=== PATIENT | female | born 1990 | race African-American/Black ===

== ENCOUNTER 2018-02-21 19:02 | Emergency (ER) | payer SELFPAY ==
[2018-02-21 19:34] VITALS: BP 133/76
--- NOTE | 2018-02-21 20:02 | ER Document Report ---
ED Medical Screen (RME) - General Chief Complaint: Headache >24 hrs old Stated Complaint: HEADACHE Time Seen by Provider: 02/21/18 19:47 Notes: RAPID MEDICAL EVALUATION DISCLOSURE I have seen this patient as part of a Rapid Medical Evaluation and, if applicable, placed any initially appropriate orders. The patient will be seen and fully evaluated, including a full history and physical exam, by a provider ( in Main ED or Fast Track) when a room becomes available. 28-year-old female here with complaints of headache that started 4 days ago progressively worsening. Headache is waxing and waning in nature. She has been using [id number] Tylenol Excedrin for the symptoms. Today, approximately 12 hours ago, she started to have some right upper extremity numbness tingling and weakness. The upper extremity symptoms are worse when the headache is worse but improved when the headache is minimal. She has no prior history of migraines or other headache syndrome. Denies any family history of same. She has no prior history of multiple sclerosis or family history of same. Denies any prior history of stroke aneurysm Sanchez's syndrome. No vision change fevers chills vomiting but has some nausea. EXAM Rightward tongue deviation RUE strength 4/5 with sensory deficit TRAVEL OUTSIDE OF THE [place] IN LAST 30 DAYS: No - Related Data Allergies/Adverse Reactions: No Known Allergies Allergy (Verified 05/26/16 14:37) Past Medical History - Social History Frequency of alcohol use: Occasional Drug Abuse: None Family history: CAD, CVA, DM, Hypertension, Malignancy Renal/ Medical History: Denies: Hx Peritoneal Dialysis GI Medical History: Reports: Hx Gastritis, Hx Gastroesophageal Reflux Disease, Hx Ulcer Musculoskeltal Medical History: Reports Hx Musculoskeletal Trauma - sprained ankle and dislocated shoulder Psychiatric Medical History: Reports: Hx Anxiety, Hx Bipolar Disorder, Hx Depression Past Surgical History: Reports: Hx Cholecystectomy, Hx Oral Surgery, Hx Tonsillectomy - Immunizations Immunizations up to date: Yes Hx Diphtheria, Pertussis, Tetanus Vaccination: No Physical Exam - Vital signs Vitals: Temp Pulse Resp BP Pulse Ox 98.0 F 78 16 133/76 H 99 02/21/18 19:34 02/21/18 19:34 02/21/18 19:34 02/21/18 19:34 02/21/18 19:34 Course - Vital Signs Vital signs: Temp Pulse Resp BP Pulse Ox 98.0 F 78 16 133/76 H 99 02/21/18 19:34 02/21/18 19:34 02/21/18 19:34 02/21/18 19:34 02/21/18 19:34
--- NOTE | 2018-02-21 21:01 | ER Document Report ---
ED Headache - General Mode of Arrival: Ambulatory Information source: Patient TRAVEL OUTSIDE OF THE [place] IN LAST 30 DAYS: No <FRENCH NEUMANN - Last Filed: 02/21/18 20:52> <ALDO NICHOLSON - Last Filed: 02/21/18 22:31> - General Chief Complaint: Headache >24 hrs old Stated Complaint: HEADACHE Time Seen by Provider: 02/21/18 19:47 Notes: 28 y.o female with a PMHx of bipolar disorder, depression, anxiety, gastritis, GERD and ulcers presents to the ED with a headache of onset , 02/17/18. Pt reports that her pain is to her forehead and RT base of her head radiating to her RUE. She c/o numbness and tingling to her RUE. Pt reports taking her home medications as prescribed. She denies any Hx of migraines. Pt's last menstrual period was February 12. (FRENCH NEUMANN) - Related Data Allergies/Adverse Reactions: No Known Allergies Allergy (Verified 05/26/16 14:37) Past Medical History - General Information source: Patient - Social History Smoking Status: Current Some Day Smoker Chew tobacco use (# tins/day): No Smoking Education Provided: Yes Frequency of alcohol use: Occasional Drug Abuse: None Family History: Arthritis, CVA, DM, Hypertension, Malignancy. denies: CAD, COPD , Hyperlipidemia, Thyroid Disfunction Patient has suicidal ideation: No Patient has homicidal ideation: No Renal/ Medical History: Denies: Hx Peritoneal Dialysis GI Medical History: Reports: Hx Gastritis, Hx Gastroesophageal Reflux Disease, Hx Ulcer Musculoskeltal Medical History: Reports Hx Musculoskeletal Trauma - sprained ankle and dislocated shoulder Psychiatric Medical History: Reports: Hx Anxiety, Hx Bipolar Disorder, Hx Depression Past Surgical History: Reports: Hx Cholecystectomy, Hx Oral Surgery, Hx Tonsillectomy - Immunizations Immunizations up to date: Yes Hx Diphtheria, Pertussis, Tetanus Vaccination: No <FRENCH NEUMANN - Last Filed: 02/21/18 20:52> Review of Systems - Review of Systems Constitutional: No symptoms reported EENT: No symptoms reported Cardiovascular: No symptoms reported Respiratory: No symptoms reported Gastrointestinal: No symptoms reported Genitourinary: No symptoms reported Female Genitourinary: See HPI, Last menstrual period - February 12 2018 Musculoskeletal: No symptoms reported Skin: No symptoms reported Hematologic/Lymphatic: No symptoms reported Neurological/Psychological: See HPI, Headaches, Numbness - RUE, Tingling - RUE -: Yes All other systems reviewed and negative <FRENCH NEUMANN - Last Filed: 02/21/18 20:52> Physical Exam <FRENCH NEUMANN - Last Filed: 02/21/18 20:52> <ALDO NICHOLSON - Last Filed: 02/21/18 22:31> - Vital signs Vitals: Temp Pulse Resp BP Pulse Ox 98.0 F 78 16 133/76 H 99 02/21/18 19:34 02/21/18 19:34 02/21/18 19:34 02/21/18 19:34 02/21/18 19:34 - Notes Notes: Physical Exam: General: Alert, appears well. HEENT: Normocephalic. Atraumatic. PERRL. Extraocular movements intact. Temporal and forehead muscle tenderness to palpation. Neck: Supple. RT posterior cervical tenderness to palpation. Respiratory: No respiratory distress. Clear and equal breath sounds bilaterally. Cardiovascular: Regular rate and rhythm. Abdominal: Normal Inspection. Soft, non-tender. No distension. Normal Bowel Sounds. Back: Non-tender. No deformity or step off. Extremities: Moves all four extremities. Upper extremities: Normal ROM. RT trapezius muscle tenderness. Lower extremities: Normal inspection. No edema. Normal ROM. Neurological: Normal cognition. AAOx3. Normal speech. No weakness to facial muscles or extremities. Psychological: Normal affect. Normal Mood. Skin: Warm. Dry. Normal color. (FRENCH NEUMANN) Course <FRENCH NEUMANN - Last Filed: 02/21/18 20:52> - Laboratory Result Diagrams: 02/21/18 20:39 02/21/18 20:39 <ALDO NICHOLSON - Last Filed: 02/21/18 22:31> - Re-evaluation Re-evalutation: 02/21/18 22:29 Patient reports headache is much better and the muscles feel relaxed now. Palpating the painful muscles shows that they are not nearly as tense or tender as they were initially. (ALDO NICHOLSON) - Vital Signs Vital signs: Temp Pulse Resp BP Pulse Ox 98.0 F 78 16 133/76 H 99 02/21/18 19:34 02/21/18 19:34 02/21/18 19:34 02/21/18 19:34 02/21/18 19:34 - Laboratory Laboratory results interpreted by me: 02/21/18 20:39 RDW 14.1 H Discharge <FRENCH NEUMANN - Last Filed: 02/21/18 20:52> <ALDO NICHOLSON - Last Filed: 02/21/18 22:31> - Discharge Clinical Impression: Muscle tension headache Condition: Stable Disposition: HOME, SELF-CARE Additional Instructions: Tension Headache: Your problem has been diagnosed as muscle tension headache. This very common type of headache occurs because of tightness in the muscles of the head and neck. The cause may be neck or jaw joint problems, but most commonly the cause is emotional stress. The headache may last hours or days. The treatment of uncomplicated tension headaches is rest and pain medication. Often, the newer antiinflammatory pain medications are prescribed, as these also decrease the irritability of the painful tissues. Muscle relaxers , cold packs, or warm packs are sometimes helpful. Anti-anxiety medication or narcotics are sometimes needed temporarily, but are best avoided in the long run. Your doctor has evaluated your headache problem, and finds no evidence of a serious health problem as a cause for the headache. If your headache becomes more severe, or if new symptoms develop (such as fever, stiff neck, vomiting, or decreasing alertness) you should be re-examined by the physician. Take Tylenol and ibuprofen or Aleve regularly for the next several days. Try ice packs and/or moist heat to see what seems to help most. Follow-up with a local medical doctor if not improving. RETURN TO THE EMERGENCY ROOM IF ANY NEW OR WORSENING SYMPTOMS. Scribe Attestation: 02/21/18 21:37 I personally performed the services described in the documentation, reviewed and edited the documentation which was dictated to the scribe in my presence, and it accurately records my words and actions. (ALDO NICHOLSON) Scribe Documentation - Scribe Written by Mitzi:: Mitzi Lu 02/21/182052 acting as scribe for :: Dashawn <RFENCH NEUMANN - Last Filed: 02/21/18 20:52>
[2018-02-21] MEDS ORDERED: DIPHENHYDRAMINE HCL 50 MG/ML VIAL IV ONE (21:03)
[2018-02-21] MEDS ORDERED: NORMAL SALINE 1000 ML 1,000 ML IV ONE (21:03)
[2018-02-21] MEDS ORDERED: PROCHLORPERAZINE EDISYLATE INJ 10 MG/2 ML VIAL IM ONE (21:03)
[2018-02-21 21:10] LABS: ABSOLUTE BASOPHILS # (AUTO) 0.1 10^3/uL (0.0-0.2); ABSOLUTE EOSINOPHILS # (AUTO) 0.1 10^3/uL (0.0-0.6); ABSOLUTE LYMPHOCYTES (AUTO) 3.5 10^3/uL (0.5-4.7); ABSOLUTE MONOCYTES (AUTO) 0.6 10^3/uL (0.1-1.4); ABSOLUTE NEUT (AUTO) 4.7 10^3/uL (1.7-8.2); BASOPHILS % (AUTO) 1.1 % (0-2); EOSINOPHILS % (AUTO) 1.5 % (0-6); HEMATOCRIT 39.3 % (36.0-47.0); HEMOGLOBIN 13.3 g/dL (12.0-15.5); LYMPHOCYTES % (AUTO) 38.6 % (13-45); MEAN CORPUSCULAR HEMOGLOBIN 30.3 pg (27.0-33.4); MEAN CORPUSCULAR HGB CONC 33.9 g/dL (32.0-36.0); MEAN CORPUSCULAR VOLUME 89 fl (80-97); MONOCYTES % (AUTO) 7.1 % (3-13); PLATELET COUNT 298 10^3/uL (150-450); RED CELL DISTRIBUTION WIDTH 14.1 % (11.5-14.0); SEGMENTED NEUTROPHILS % (AUTO) 51.7 % (42-78); TOTAL CELLS COUNTED % (AUTO) 100 %
[2018-02-21 21:21] LABS: ALANINE AMINOTRANSFERASE 18 U/L (9-52); ALBUMIN 3.9 g/dL (3.5-5.0); ALKALINE PHOSPHATASE 57 U/L (38-126); ANION GAP 9 (5-19); ASPARTATE AMINO TRANSFERASE 20 U/L (14-36); BILIRUBIN,DIRECT 0.2 mg/dL (0.0-0.4); BILIRUBIN,TOTAL 0.2 mg/dL (0.2-1.3); BLOOD UREA NITROGEN 11 mg/dL (7-20); CALCIUM 9.7 mg/dL (8.4-10.2); CARBON DIOXIDE 28 mmol/L (22-30); CHLORIDE 105 mmol/L (98-107); GLUCOSE 86 mg/dL (75-110); POTASSIUM 4.4 mmol/L (3.6-5.0); TOTAL PROTEIN 6.9 g/dL (6.3-8.2)
[2018-02-21 21:30] LABS: INTERNATIONAL RATION (INR) 0.95; PROTHROMBIN TIME 13.2 SEC (11.4-15.4)
[2018-02-21 21:31] LABS: PARTIAL THROMBOPLASTIN TIME 32.2 SEC (23.5-35.8)
== END 2018-02-21 23:00 | disposition home or self-care (01) ==
LOC: ER 19:02
DX: G44.209 Tension-type headache, unspecified, not intractable (principal); M79.601 Pain in right arm; R20.0 Anesthesia of skin; F17.200 Nicotine dependence, unspecified, uncomplicated
CPT/HCPCS: 99284; 96372; 96361; 96374; 36415; 85025; 85610; 85730; 80053; 84484; J1200; J0780; J7030

== ENCOUNTER 2018-07-10 12:59 | Emergency (ER) | payer SELFPAY ==
[2018-07-10] MEDS ORDERED: ALBUTEROL SULFATE HFA (90 MCG/PUFF) 8 GM MDI (1 MDI/ER DISP) IH ONE (13:29)
--- NOTE | 2018-07-10 13:37 | ER Document Report ---
ED Respiratory Problem - General Mode of Arrival: Ambulatory Information source: Patient TRAVEL OUTSIDE OF THE [place] IN LAST 30 DAYS: No - General Chief Complaint: Congestion Stated Complaint: COUGH/CONGESTION Time Seen by Provider: 07/10/18 13:24 Notes: 28-year-old female who presents to the emergency department today with complaints of a 5-day history of cough, nasal congestion, chills, and and generalized body aches. Patient states she has tried Mucinex with minimal relief. Patient states her sputum is a greenish yellow color. Patient states initially she had a few specks of blood the first couple of days but this has since subsided. Patient denies any fevers, ear pain, vomiting, or diarrhea. ( JARAD BEDOLLA) - Related Data Allergies/Adverse Reactions: No Known Allergies Allergy (Verified 05/26/16 14:37) Past Medical History - General Information source: Patient - Social History Smoking Status: Current Every Day Smoker Cigarette use (# per day): Yes Chew tobacco use (# tins/day): No Frequency of alcohol use: None Drug Abuse: None Family History: Arthritis, CVA, DM, Hypertension, Malignancy Patient has suicidal ideation: No Patient has homicidal ideation: No Renal/ Medical History: Denies: Hx Peritoneal Dialysis GI Medical History: Reports: Hx Gastritis, Hx Gastroesophageal Reflux Disease, Hx Ulcer Musculoskeletal Medical History: Reports Hx Musculoskeletal Trauma - sprained ankle and dislocated shoulder Psychiatric Medical History: Reports: Hx Anxiety, Hx Bipolar Disorder, Hx Depression Past Surgical History: Reports: Hx Cholecystectomy, Hx Oral Surgery, Hx Tonsillectomy - Immunizations Immunizations up to date: Yes Hx Diphtheria, Pertussis, Tetanus Vaccination: No Review of Systems - Review of Systems Constitutional: See HPI, Chills. denies: Fever EENT: denies: Ear pain Cardiovascular: No symptoms reported Respiratory: See HPI, Cough Gastrointestinal: denies: Diarrhea, Vomiting Genitourinary: No symptoms reported Female Genitourinary: No symptoms reported Musculoskeletal: See HPI, Muscle pain Skin: No symptoms reported Hematologic/Lymphatic: No symptoms reported Neurological/Psychological: No symptoms reported -: Yes All other systems reviewed and negative Physical Exam - Vital signs Vitals: Temp Pulse Resp BP Pulse Ox 98.3 F 80 20 135/77 H 97 07/10/18 13:06 07/10/18 13:06 07/10/18 13:06 07/10/18 13:06 07/10/18 13:06 - Notes Notes: PHYSICAL EXAM GENERAL: Alert, interacts well. No acute distress. HEAD: Normocephalic, atraumatic. EYES: Pupils equal, round, and reactive to light. Extraocular movements intact. ENT: Oral mucosa moist, tongue midline. Nares patent, turbinate injection without edema, clear rhinorrhea, no nasal septal hematoma, cobblestoning in posterior oropharynx, TMs intact bilaterally - mild TM injection with good light reflex bilaterally. Small amount of anterior cervical lymphadenopathy. NECK: Full range of motion. Supple. Trachea midline. LUNGS: Trace amount of expiratory wheeze on the left, inspiratory rhonchi on the right. No respiratory distress. HEART: Regular rate and rhythm. No murmurs, gallops, or rubs. EXTREMITIES: Moves all 4 extremities spontaneously. NEUROLOGICAL: Alert and oriented x3. Normal speech. PSYCH: Normal affect, normal mood. SKIN: Warm, dry, normal turgor. No rashes or lesions noted. Patient has a moustache. (JARAD BEDOLLA) Course - Re-evaluation Re-evalutation: 07/10/18 14:05 Chest x-ray shows no acute process, patient given inhaler and instructed to use 2 puffs every 4 hours as needed. Also prescribed Tessalon Perles, instructed on nasal saline rinses and discharged to home. Appears to be viral upper respiratory infection with cough. (BIRGIT PRETTY) - Vital Signs Vital signs: Temp Pulse Resp BP Pulse Ox 98.3 F 80 20 135/77 H 97 07/10/18 13:06 07/10/18 13:06 07/10/18 13:06 07/10/18 13:06 07/10/18 13:06 Discharge - Discharge Clinical Impression: Viral upper respiratory tract infection with cough Condition: Stable Disposition: HOME, SELF-CARE Instructions: Upper Respiratory Illness ([facility]) Additional Instructions: Please use ibuprofen (Motrin or Advil) 600-800 mg every 8 hours as needed for pain or fever. You may also use acetaminophen (Tylenol) 1000 mg every 4-6 hours as needed for pain or fever. Please be aware that many medications contain acetaminophen, do not exceed a total of 1000 mg of acetaminophen every 6 hours. Please use nasal saline rinses such as a NetiPot or NeilMed Sinus Rinses. Use the inhaler 2 puffs every 4 hours as needed for cough or shortness of breath. You may take the Tessalon Perles 1 Perle every 8 hours as needed for cough. Prescriptions: Benzonatate [Tessalon Perles 100 mg Capsule] 100 mg PO Q8HP PRN #40 capsule PRN Reason: Referrals: RICH FARMER MD [ACTIVE STAFF] - Follow up as needed Scribe Attestation: 07/10/18 14:06 I personally performed the services described in the documentation, reviewed and edited the documentation which was dictated to the scribe in my presence, and it accurately records my words and actions. (BIRGIT PRETTY) Scribe Documentation - Scribe Written by Mitzi:: Mitzi Brice, 07/10/2018 1339 acting as scribe for :: Marco
--- NOTE | 2018-07-10 13:51 | RADIOLOGY REPORT (SQ) ---
EXAM DESCRIPTION: CHEST 2 VIEWS COMPLETED DATE/TIME: 07/10/2018 1:40 pm REASON FOR STUDY: cough, SOB COMPARISON: None. EXAM PARAMETERS: NUMBER OF VIEWS: two views TECHNIQUE: Digital Frontal and Lateral radiographic views of the chest acquired. RADIATION DOSE: NA LIMITATIONS: none FINDINGS: LUNGS AND PLEURA: No opacities, masses or pneumothorax. No pleural effusion. MEDIASTINUM AND HILAR STRUCTURES: No masses or contour abnormalities. HEART AND VASCULAR STRUCTURES: Heart normal size. No evidence for failure. BONES: No acute findings. HARDWARE: None in the chest. OTHER: No other significant finding. IMPRESSION: NO ACUTE RADIOGRAPHIC FINDING IN THE CHEST. TECHNICAL DOCUMENTATION: JOB ID: [id number] [employer]- All Rights Reserved Reading location - IP/workstation name: [email or web address]
[2018-07-10 14:09] VITALS: BP 122/77
== END 2018-07-10 14:08 | disposition home or self-care (01) ==
LOC: ER 12:59
DX: J06.9 Acute upper respiratory infection, unspecified (principal); B97.89 Other viral agents as the cause of diseases classified elsewhere; R05 Cough; R09.81 Nasal congestion; R68.83 Chills (without fever); F17.210 Nicotine dependence, cigarettes, uncomplicated; M79.10 Myalgia, unspecified site; R59.0 Localized enlarged lymph nodes
CPT/HCPCS: 99283; 71046; J3490

== ENCOUNTER 2019-07-27 09:48 | Emergency (ER) | payer MEDICAID ==
--- NOTE | 2019-07-27 10:14 | ER Document Report ---
ED Medical Screen (RME) - General Chief Complaint: Breast Lump Stated Complaint: BREAST PAIN Time Seen by Provider: 07/27/19 10:10 TRAVEL OUTSIDE OF THE [place] IN LAST 30 DAYS: No - HPI Notes: 07/27/19 10:12 Patient is a 29-year-old female who presents complaining of left breast pain, left nipple pain, scant discharge from the nipple over the past year, but worsening recently. Patient states that she just got Medicaid and is now able to get evaluated for it. She has never had a mammogram performed. Patient states that her nipple is somewhat retracting on the left side versus the right. Denies drug allergies. No other concerns or complaints. Denies fever, chest pain, shortness of breath, abdominal pain. Pt otherwise aware that she may need mammogram. I have treated and performed a rapid initial assessment of this patient. A comprehensive ED assessment and evaluation of the patient, analysis of test results and completion of medical decision making process will be conducted by additional ED providers. PHYSICAL EXAMINATION: GENERAL: Well-appearing, well-nourished and in no acute distress. A&Ox4. Answers questions appropriately. Breast: + tenderness near the areola/nipple and medial breast. There is mild retracting of superior nipple vs right, but will need a more formal breast exam performed and we will perform US to look for any fluid collection. - Related Data Allergies/Adverse Reactions: No Known Allergies Allergy (Verified 07/27/19 10:02) Home Medications: Buspar. Ambien. Lamictal Past Medical History - Social History Chew tobacco use (# tins/day): No Frequency of alcohol use: Occasional Drug Abuse: None Family history: CAD, CVA, DM, Hypertension, Malignancy Renal/ Medical History: Denies: Hx Peritoneal Dialysis GI Medical History: Reports: Hx Gastritis, Hx Gastroesophageal Reflux Disease, Hx Ulcer Musculoskeltal Medical History: Reports Hx Musculoskeletal Trauma - sprained ankle and dislocated shoulder Psychiatric Medical History: Reports: Hx Anxiety, Hx Bipolar Disorder, Hx Depression Past Surgical History: Reports: Hx Cholecystectomy, Hx Oral Surgery, Hx Tonsillectomy - Immunizations Immunizations up to date: Yes Hx Diphtheria, Pertussis, Tetanus Vaccination: No Physical Exam - Vital signs Vitals: Temp Pulse Resp BP Pulse Ox 98.1 F 93 16 145/73 H 100 07/27/19 09:53 07/27/19 09:53 07/27/19 09:53 07/27/19 09:53 07/27/19 09:53 Course - Vital Signs Vital signs: Temp Pulse Resp BP Pulse Ox 98.1 F 93 16 145/73 H 100 07/27/19 10:02 07/27/19 09:53 07/27/19 10:02 07/27/19 09:53 07/27/19 10:02
--- NOTE | 2019-07-27 11:49 | RADIOLOGY REPORT (SQ) ---
EXAM DESCRIPTION: U/S BREAST UNILATERAL COMPLETE COMPLETED DATE/TIME: 07/27/2019 11:35 am REASON FOR STUDY: Left breast pain, r/o fluid collection COMPARISON: 10/18/2014. TECHNIQUE: Real-time and static grayscale imaging performed of the left breast targeted to the area of clinical/mammographic concern as well as images in all 4 quadrants and retroareolar breast. Select ed color Doppler images recorded. LIMITATIONS: None. FINDINGS: MASS: No mass identified. No fluid collection. Dense glandular tissue. OTHER: No other significant finding. IMPRESSION: No suspicious findings detected by ultrasound. BIRAD: 1 Negative. RECOMMENDATION: RECOMMENDED FOLLOW-UP: Follow-up as clinically indicated. COMMENT: The [employer] ([employer]) has developed recommendations for screening MRI of the breasts in certain patient populations, to be used in conjunction with mammography. Breast MRI s urveillance may be appropriate for women with more than 20% lifetime risk of developing breast cancer as determined by genetic testing, significant family history of the disease, or history of mantle r adiation for Hodgkins Disease. [employer] Practice Guidelines 2008. TECHNICAL DOCUMENTATION: JOB ID: [id number] [employer]- All Rights Reserved Reading location - IP/workstation name: [email or web address]
[2019-07-27 12:30] VITALS: BP 127/81
--- NOTE | 2019-07-27 12:33 | ER Document Report ---
ED Breast Problem - General Chief Complaint: Breast Lump Stated Complaint: BREAST PAIN Time Seen by Provider: 07/27/19 10:10 Mode of Arrival: Ambulatory Information source: Patient Notes: 29-year-old female presented to ED for complaint of left breast pain and not. She states she sometimes has white discharge. She states she cannot express it it just is there when she goes to clean herself. She states it has been getting worse recently. There is no redness no inflammation. States she just got Medicaid so she needs this evaluated. She has never had a mammogram due to her age. The nipple is mildly retracted there is no obvious discharge at this time. There is a lump at the 11 o'clock position. The ultrasound did not show any obvious fluid collection or nodules. She states it states it is hyper granular. I have discussed all this with the patient and instructed her to please call her primary care in the morning and schedule a mammogram and diagnostic ultrasound with probable needle biopsy. Patient has verbalized understanding and agreement with this and patient will be discharged home. TRAVEL OUTSIDE OF THE [place] IN LAST 30 DAYS: No - HPI Patient complains to provider of: Lump, Tenderness Onset: Other - She is unsure of how long but it is been getting worse over the last several days Onset/Duration: Gradual Quality of pain: Achy, Pressure Severity: Moderate Pain Level: 4 Drainage amount: Scant Discharge description: Creamy Associated Symptoms: None Similar symptoms previously: Yes Recently seen / treated by doctor: No - Related Data Allergies/Adverse Reactions: No Known Allergies Allergy (Verified 07/27/19 10:02) Home Medications: Buspar. Ambien. Lamictal Past Medical History - General Information source: Patient - Social History Smoking Status: Former Smoker Chew tobacco use (# tins/day): No Frequency of alcohol use: Occasional Drug Abuse: None Family History: Arthritis, CVA, DM, Hypertension, Malignancy Patient has suicidal ideation: No Patient has homicidal ideation: No - Past Medical History Cardiac Medical History: Reports: None Pulmonary Medical History: Reports: None EENT Medical History: Reports: None Neurological Medical History: Reports: None Endocrine Medical History: Reports: None Renal/ Medical History: Reports: None Malignancy Medical History: Reports: None GI Medical History: Reports: Hx Gastritis, Hx Gastroesophageal Reflux Disease, Hx Ulcer Musculoskeletal Medical History: Reports Hx Musculoskeletal Trauma - sprained ankle and dislocated shoulder Skin Medical History: Reports None Psychiatric Medical History: Reports: Hx Anxiety, Hx Bipolar Disorder, Hx Depression Traumatic Medical History: Reports: None Infectious Medical History: Reports: None Past Surgical History: Reports: Hx Cholecystectomy, Hx Oral Surgery, Hx Tonsillectomy - Immunizations Immunizations up to date: Yes Hx Diphtheria, Pertussis, Tetanus Vaccination: No Review of Systems - Review of Systems Constitutional: No symptoms reported EENT: No symptoms reported Cardiovascular: No symptoms reported Respiratory: Other - Left breast lump with scant drainage from the nipple 11 o'clock position for the lump is very tender she states she cannot let water touch it due to the tenderness and pain. Gastrointestinal: No symptoms reported Genitourinary: No symptoms reported Female Genitourinary: No symptoms reported Musculoskeletal: No symptoms reported Skin: No symptoms reported Hematologic/Lymphatic: No symptoms reported Neurological/Psychological: No symptoms reported -: Yes All other systems reviewed and negative Physical Exam - Vital signs Vitals: Temp Pulse Resp BP Pulse Ox 98.1 F 93 16 145/73 H 100 07/27/19 09:53 07/27/19 09:53 07/27/19 09:53 07/27/19 09:53 07/27/19 09:53 Interpretation: Normal - General General appearance: Appears well, Alert - HEENT Head: Normocephalic, Atraumatic Eyes: Normal Pupils: PERRL - Respiratory Respiratory status: No respiratory distress Chest status: Tender - Left breast lump about 11 o'clock position very tender to palpation. She states she has breast discharge cream-colored no obvious discharge at this time Breath sounds: Normal Chest palpation: Normal - Cardiovascular Rhythm: Regular Heart sounds: Normal auscultation Murmur: No - Abdominal Inspection: Normal Distension: No distension Bowel sounds: Normal Tenderness: Nontender Organomegaly: No organomegaly - Back Back: Normal, Nontender - Extremities General upper extremity: Normal inspection, Nontender, Normal color, Normal ROM, Normal temperature General lower extremity: Normal inspection, Nontender, Normal color, Normal ROM, Normal temperature, Normal weight bearing. No: Mik's sign - Neurological Neuro grossly intact: Yes Cognition: Normal Orientation: AAOx4 Araseli Coma Scale Eye Opening: Spontaneous Araseli Coma Scale Verbal: Oriented Araseli Coma Scale Motor: Obeys Commands Araseli Coma Scale Total: 15 Speech: Normal Motor strength normal: LUE, RUE, LLE, RLE Sensory: Normal - Psychological Associated symptoms: Normal affect, Normal mood - Skin Skin Temperature: Warm Skin Moisture: Dry Skin Color: Normal Course - Re-evaluation Re-evalutation: 07/27/19 12:38 Discussed ultrasound with patient and written report of ultrasound given to patient for follow-up with primary care. I have instructed her to call today to get an appointment as soon as possible with her primary so she can get a mammogram and diagnostic ultrasound with possible biopsy ordered. Patient verbalized understanding and agreement with treatment plan and will be discharged home. She refused Tylenol or Motrin for her discomfort at this time. - Vital Signs Vital signs: Temp Pulse Resp BP Pulse Ox 98.1 F 93 16 145/73 H 100 07/27/19 10:02 07/27/19 09:53 07/27/19 10:02 07/27/19 09:53 07/27/19 10:02 - Diagnostic Test Radiology reviewed: Image reviewed, Reports reviewed Discharge - Discharge Clinical Impression: Breast lump in female Condition: Stable Disposition: HOME, SELF-CARE Additional Instructions: Breast Lumps There is a lump in your breast. We realize this will worry you. Most breast masses are not cancer. Most breast masses are fibrocystic disease, simple cysts, or fibroadenoma, which are benign. The first step is usually a mammogram or ultrasound of the breast. Your private physician, or a surgeon, can complete the evaluation. Be sure to keep your follow-up appointment. If the lump is malignant, early removal is your best chance of a cure. I have discussed the ultrasound with you and given you a written report of the ultrasound. Please call your primary care doctor today or tomorrow schedule a follow-up appointment to have a diagnostic breast ultrasound and mammogram for your breast lump. FOLLOW-UP CARE: If you have been referred to a physician for follow-up care, call the physicia ns office for an appointment as you were instructed or within the next two days. If you experience worsening or a significant change in your symptoms, notify the physician immediately or return to the Emergency Department at any time for re-evaluation. Forms: Elevated Blood Pressure, Return to Work
== END 2019-07-27 12:42 | disposition home or self-care (01) ==
LOC: ER 09:48
DX: N63.0 Unspecified lump in unspecified breast (principal); N64.4 Mastodynia; N64.52 Nipple discharge; F41.9 Anxiety disorder, unspecified; F31.9 Bipolar disorder, unspecified; Z79.899 Other long term (current) drug therapy
CPT/HCPCS: 76641; 99283

== ENCOUNTER → 2019-08-08 | Outpatient (CLI) | payer MEDICAID ==
--- NOTE | 2019-08-08 14:37 | WOMENS IMAGING REPORT ---
EXAM DESCRIPTION: BILAT DIAGNOSTIC MAMMO W/CAD COMPLETED DATE/TIME: 08/08/2019 8:26 am REASON FOR STUDY: N63.0 UNSPECIFIED LUMP IN UNSPECIFIED BREAST N63.0 UNSPECIFIED LUMP IN UNSPECIFIE D BREAST COMPARISON: None. EXAM PARAMETERS: Standard craniocaudal and mediolateral oblique views of each breast recorded using digital acquisition. Additional true lateral view of the left breast. Spot compression imaging in orthogonal planes of th e area of concern medial inferior left breast quadrant. Read with the assistance of CAD: .[facility] - [employer] Version 9.2 LIMITATIONS: None. FINDINGS: RIGHT BREAST MASSES: No suspicious masses. CALCIFICATIONS: No new or suspicious calcifications. ARCHITECTURAL DISTORTION: None. ASYMMETRY: None noted. OTHER: No other significant findings. LEFT BREAST MASSES: No suspicious masses. CALCIFICATIONS: No new or suspicious calcifications. ARCHITECTURAL DISTORTION: None. ASYMMETRY: Vague asymmetry medial inferior left breast without focal mass. OTHER: No other significant finding. BREAST ULTRASOUND: TECHNIQUE: Static and dynamic grayscale images acquired of the left breast in the specific areas of c linical/mammographic concern. Selected color Doppler images recorded. ELASTOGRAPHY PERFORMED: No. LIMITATIONS: None. FINDINGS: MASS: There is a ridge of dense fibroglandular tissue in the area palpable concern corresponded in si ze shape and location of the vague density seen on mammography. Asymmetric glandular tissue. ELASTOGRAPHY CHARACTERISTICS: Not applicable. OTHER: No other significant finding. IMPRESSION: Asymmetric glandular tissue in the left breast BREAST DENSITY: b. There are scattered areas of fibroglandular density. BIRAD: ASSESSMENT: 1 Negative. RECOMMENDATION: RECOMMENDED FOLLOW UP: Birads 1 or 2: The patient should resume routine screening . SPECIFIC INTERVENTION/IMAGING/CONSULTATION RECOMMENDED:No additional intervention/ imaging/consultati on needed at this time. COMMUNICATION:The imaging findings were not discussed with the patient. Her referring provider has be en notified of the findings. COMMENT: The patient has been notified of the results by letter per MQSA requirements. Additional no tification policies are in place for contacting patient with suspicious or incomplete findings. Quality ID #225: The [employer] recommends an annual screening mammogram for women aged 40 years or over. This facility utilizes a reminder system to ensure that all patients receive reminder letters, and/or direct phone calls for appointments. This includes reminders for routine scr eening mammograms, diagnostic mammograms, or other Breast Imaging Interventions when appropriate. Th is patient will be placed in the appropriate reminder system. TECHNICAL DOCUMENTATION: FINDING NUMBER: (1) ASSESSMENT: (1) JOB ID: [id number] [employer]- All Rights Reserved Reading location - IP/workstation name: [email or web address]
== END ==
LOC: WI 07:35
PROVIDERS: ATTEND Family Medicine
DX: N64.89 Other specified disorders of breast (principal)
CPT/HCPCS: 77066

== ENCOUNTER 2020-07-22 07:35 | Emergency (ER) | payer MEDICAID ==
--- NOTE | 2020-07-22 08:06 | EKG REPORT ---
SEVERITY:- OTHERWISE NORMAL ECG - SINUS TACHYCARDIA : Confirmed by: Alfreda Herrera 22-Jul-2020 08:05:34
--- NOTE | 2020-07-22 08:53 | RADIOLOGY REPORT (SQ) ---
EXAM DESCRIPTION: CHEST 2 VIEWS IMAGES COMPLETED DATE/TIME: 07/22/2020 8:34 am REASON FOR STUDY: chest pain COMPARISON: PA and lateral views of the chest from 07/10/2018. EXAM PARAMETERS: NUMBER OF VIEWS: Two views. TECHNIQUE: PA and lateral views of the chest were obtained. RADIATION DOSE: NA LIMITATIONS: None. FINDINGS: LUNGS AND PLEURA: No consolidation, pleural effusion or pneumothorax. MEDIASTINUM AND HILAR STRUCTURES: No mediastinal or hilar contour abnormality. HEART AND VASCULAR STRUCTURES: The cardiac silhouette and pulmonary vasculature are within normal lopes its. BONES: No acute findings. HARDWARE: None in the chest. OTHER: No other finding. IMPRESSION: No acute cardiopulmonary process. TECHNICAL DOCUMENTATION: JOB ID: [id number] [employer]- All Rights Reserved Reading location - IP/workstation name: [email or web address]
[2020-07-22 09:39] LABS: ABSOLUTE BASOPHILS # (AUTO) 0.1 10^3/uL (0.0-0.2); ABSOLUTE EOSINOPHILS # (AUTO) 0.1 10^3/uL (0.0-0.6); ABSOLUTE LYMPHOCYTES (AUTO) 2.2 10^3/uL (0.5-4.7); ABSOLUTE MONOCYTES (AUTO) 0.7 10^3/uL (0.1-1.4); ABSOLUTE NEUT (AUTO) 3.4 10^3/uL (1.7-8.2); BASOPHILS % (AUTO) 0.8 % (0-2); EOSINOPHILS % (AUTO) 2.2 % (0-6); HEMATOCRIT 39.4 % (36.0-47.0); HEMOGLOBIN 13.1 g/dL (12.0-15.5); MEAN CORPUSCULAR HEMOGLOBIN 30.1 pg (27.0-33.4); MEAN CORPUSCULAR HGB CONC 33.3 g/dL (32.0-36.0); MEAN CORPUSCULAR VOLUME 91 fl (80-97); MONOCYTES % (AUTO) 10.5 % (3-13); PLATELET COUNT 286 10^3/uL (150-450); RED BLOOD COUNT 4.35 10^6/uL (3.72-5.28); RED CELL DISTRIBUTION WIDTH 13.6 % (11.5-14.0); SEGMENTED NEUTROPHILS % (AUTO) 52.5 % (42-78); TOTAL CELLS COUNTED % (AUTO) 100 %; WHITE BLOOD COUNT 6.4 10^3/uL (4.0-10.5)
[2020-07-22 09:44] LABS: ALBUMIN 4.2 g/dL (3.5-5.0); ALKALINE PHOSPHATASE 67 U/L (38-126); ANION GAP 8 (5-19); ASPARTATE AMINO TRANSFERASE 28 U/L (14-36); BILIRUBIN,DIRECT 0.1 mg/dL (0.0-0.4); BILIRUBIN,TOTAL 0.6 mg/dL (0.2-1.3); BLOOD UREA NITROGEN 13 mg/dL (7-20); CALCIUM 9.7 mg/dL (8.4-10.2); CARBON DIOXIDE 27 mmol/L (22-30); CHLORIDE 105 mmol/L (98-107); CREATINE KINASE 70 U/L (30-135); GLUCOSE 132 mg/dL (75-110); POTASSIUM 4.8 mmol/L (3.6-5.0)
[2020-07-22 10:06] LABS: CREATINE KINASE MB < 0.22 ng/mL (<4.55); TROPONIN I < 0.012 ng/mL
--- NOTE | 2020-07-22 11:08 | ER Document Report ---
ED General - General Chief Complaint: Chest Pain Stated Complaint: CHEST PAIN Time Seen by Provider: 07/22/20 09:52 Primary Care Provider: JANET TINSLEY MD [ACTIVE STAFF] - Follow up as needed Mode of Arrival: Ambulatory Information source: Patient Notes: Otherwise healthy 30-year-old female presented to the emergency department chief complaint of 2-week history of intermittent left-sided chest pain that radiates to her left arm. She reports associated headaches and ringing in her ears when she has these episodes. She states the episodes occur about 4-5 times a day and last for 5 to 10 minutes. She states last night her blood pressure was elevated. She states that when these symptoms occur she lays down to rest in the symptoms seem to go away. She denies any recent sick contacts. Has not ever been seen by a [employer]. Currently chest pain-free. TRAVEL OUTSIDE OF THE [place] IN LAST 30 DAYS: No - Related Data Allergies/Adverse Reactions: No Known Allergies Allergy (Verified 07/27/19 10:02) Past Medical History - General Information source: Patient - Social History Smoking Status: Never Smoker Family History: Arthritis, CVA, DM, Hypertension, Malignancy Renal/ Medical History: Denies: Hx Peritoneal Dialysis GI Medical History: Reports: Hx Gastritis, Hx Gastroesophageal Reflux Disease, Hx Ulcer Musculoskeletal Medical History: Reports Hx Musculoskeletal Trauma - sprained ankle and dislocated shoulder Psychiatric Medical History: Reports: Hx Anxiety, Hx Bipolar Disorder, Hx Depression Past Surgical History: Reports: Hx Cholecystectomy, Hx Oral Surgery, Hx Tonsillectomy - Immunizations Immunizations up to date: Yes Hx Diphtheria, Pertussis, Tetanus Vaccination: No Review of Systems - Review of Systems EENT: Other - EAR RINGING Cardiovascular: Chest pain, Palpitations -: Yes All other systems reviewed and negative Physical Exam - Vital signs Vitals: Temp Pulse Resp BP Pulse Ox 98.3 F 96 16 123/72 99 07/22/20 07:50 07/22/20 07:50 07/22/20 07:50 07/22/20 07:50 07/22/20 07:50 - Notes Notes: PHYSICAL EXAMINATION: GENERAL: Well-appearing, well-nourished and in no acute distress. HEAD: Atraumatic, normocephalic. EYES: Pupils equal round and reactive to light, extraocular movements intact, conjunctiva are normal. ENT: Nares patent, oropharynx clear without exudates. Moist mucous membranes. NECK: Normal range of motion, supple without lymphadenopathy LUNGS: Breath sounds clear to auscultation bilaterally and equal. No wheezes rales or rhonchi. HEART: Regular rate and rhythm without murmurs ABDOMEN: Soft, nontender, nondistended abdomen. No guarding, no rebound. No masses appreciated. Female : deferred Musculoskeletal: Normal range of motion, no pitting or edema. No cyanosis. Reproducible chest pain with palpation across the left chest wall. NEUROLOGICAL: Cranial nerves grossly intact. Normal speech, normal gait. Normal sensory, motor exams PSYCH: Normal mood, normal affect. SKIN: Warm, Dry, normal turgor, no rashes or lesions noted. Course - Re-evaluation Re-evalutation: Patient appears well, nontoxic. EKG reviewed as below. Lab work-up today was reassuring. Patient has had intermittent chest pain over the last 2 weeks. Her troponin is negative. No indication for repeat troponin today. We will have her follow-up with cardiology. - Vital Signs Vital signs: Temp Pulse Resp BP Pulse Ox 98.4 F 96 16 105/77 97 07/22/20 11:01 07/22/20 07:50 07/22/20 11:01 07/22/20 11:01 07/22/20 11:01 - Laboratory Results Result Diagrams: 07/22/20 08:24 07/22/20 08:24 Laboratory Results Interpreted: 07/22/20 08:24 Glucose 132 H Critical Laboratory Results Reviewed: No Critical Results - Radiology Results Critical Radiology Results Reviewed: No Critical Results - EKG Interpretation by Me EKG shows normal: Sinus rhythm, [place], Intervals, QRS Complexes, ST-T Waves Rate: Tachycardia Discharge - Discharge Clinical Impression: Chest pain Qualifiers: Chest pain type: unspecified Qualified Code(s): R07.9 - Chest pain, unspecified Condition: Stable Disposition: HOME, SELF-CARE Additional Instructions: Your work-up today was reassuring. Your chest x-ray, EKG and lab work were normal. The chest pain you are experiencing in the last 2 weeks does not appear to be from a life-threatening cause such as a heart attack. I do believe he should follow-up with cardiology for a more thorough work-up possibly to include an echocardiogram since you continue to have the symptoms. If symptoms worsen at all please return to the emergency department immediately. Prescriptions: Methocarbamol [Robaxin 500 mg Tablet] 500 mg PO TIDP PRN #30 tablet PRN Reason: Referrals: JANET TINSLEY MD [ACTIVE STAFF] - Follow up as needed
[2020-07-22 11:23] VITALS: BP 105/77
== END 2020-07-22 11:41 | disposition home or self-care (01) ==
LOC: ER 07:35
DX: R07.9 Chest pain, unspecified (principal); Z90.49 Acquired absence of other specified parts of digestive tract
CPT/HCPCS: 36415; 71046; 80053; 82550; 82553; 84484; 85025; 93005; 93010; 99285